=== PATIENT | female | born 1995 | race Caucasian/White ===

== ENCOUNTER 2018-06-15 20:58 | Emergency (ER) | payer SELFPAY ==
[~2018-06-15] VITALS: Ht 142.2 cm; Wt 70.5 kg
[2018-06-15 21:44] LABS: BASOPHIL (%) 0.4 % (0-1); EOSINOPHIL (%) 0.5 % (0-5); EOSINOPHIL COUNT 0.1 K/uL (0-0.3); HEMATOCRIT 43.1 % (36.0-46.0); HEMOGLOBIN 14.5 G/DL (11.9-15.5); IMMATURE GRANULOCYTE (%) 0.3 % (0.0-0.7); LYMPHOCYTE (%) 38.7 % (15-42); LYMPHOCYTE COUNT 4.3 K/uL (1.0-2.8); MCH 28.7 PG (29.0-34.0); MCHC 33.6 G/DL (30.0-36.0); MCV 85.3 FL (83-99); MONOCYTE (%) 7.4 % (3-12); MONOCYTE COUNT 0.8 K/uL (0-0.8); NEUTROPHIL (%) 52.7 % (45-76); NEUTROPHIL COUNT 5.8 K/uL (1.8-6.4); PLATELET COUNT 419 K/uL (156-360); RBC DIS.WIDTH-CV 13.2 % (11.8-14.6); RED BLOOD COUNT 5.05 M/uL (3.80-5.20)
[2018-06-15 21:54] LABS: CHLORIDE 108 mEq/L (99-109); POTASSIUM 4.1 mEq/L (3.7-5.4); SODIUM 141 mEq/L (136-147)
[2018-06-15 21:57] LABS: GLUCOSE 85 mg/dL (70-99); TOTAL PROTEIN 7.3 g/dL (6.4-8.3)
[2018-06-15 21:59] LABS: TOTAL BILIRUBIN 0.3 mg/dL (0.0-1.0)
[2018-06-15 22:00] LABS: ALKALINE PHOSPHATASE 87 IU/L (3-129)
[2018-06-15 22:01] LABS: APPEARANCE CLEAR ((CLEAR)); BILIRUBIN NEGATIVE; BLOOD NEGATIVE; COLOR STRAW ((YELLOW)); GLUCOSE (STRIP) NEGATIVE; KETONES NEGATIVE; LEUKOCYTES NEGATIVE; NITRITE NEGATIVE; PROTEIN (STRIP) NEGATIVE; SPECIFIC GRAVITY 1.005 (1.000-1.030); UCUL ADDED? NO; UROBILINOGEN 0.2 MG/DL (0.2-1.0)
[2018-06-15 22:01] LABS: CREATININE 0.9 mg/dL (0.6-1.3); GFR ESTIMATE (CALCULATED) > 59 mL/min/
[2018-06-15 22:02] LABS: AST (GOT) 18 IU/L (2-34); DIRECT BILIRUBIN 0.1 mg/dL (0.0-0.3); UREA NITROGEN (BUN) 11 mg/dL (9-23)
[2018-06-15 22:04] LABS: ALT (GPT) 13 IU/L (3-49); LIPASE 53 U/L (1.0-51.0)
[2018-06-15 22:06] LABS: TROP-I INTERPRETATION NEGATIVE; TROPONIN-I < 0.01 ng/mL (0.0-0.30)
[2018-06-15 22:14] LABS: QUANTITATIVE HCG < 4.0 MIU/ML
[2018-06-15 22:18] LABS: MAGNESIUM 2.3 mg/dl (1.3-2.7)
[2018-06-15 23:33] VITALS: BP 116/73
== END 2018-06-16 00:15 | disposition home or self-care (01) ==
LOC: EME 20:58 → EDBD 20:58 → EME 06-16 00:15
PROVIDERS: Emergency Medicine
DX: G43.909 Migraine, unspecified, not intractable, without status migrainosus (principal); Z72.0 Tobacco use; F12.90 Cannabis use, unspecified, uncomplicated; J45.909 Unspecified asthma, uncomplicated
CPT/HCPCS: 80048; 80076; 81003; 83690; 83735; 84484; 84702; 85025; 93005; 99281; 99284; J1200; J2765; J7040